=== PATIENT | female | born 1990 | race African-American/Black ===

== ENCOUNTER 2017-10-04 20:02 | Emergency (ER) | payer MEDICAID ==
[~2017-10-04 20:02] MED LIST: ALBUTEROL; BACTRIM
== END 2017-10-04 21:07 | disposition left against medical advice (07) ==
LOC: ER 20:40
DX: Z53.21 Procedure and treatment not carried out due to patient leaving prior to being seen by health care provider (principal)

== ENCOUNTER 2017-11-30 03:28 | Emergency (ER) | payer MEDICAID ==
[~2017-11-30] VITALS: Ht 162.6 cm; Wt 50.0 kg
[2017-11-30 03:43] VITALS: BP 107/81
== END 2017-11-30 05:42 | disposition left against medical advice (07) ==
LOC: ER 03:28
DX: A64 Unspecified sexually transmitted disease (principal); J45.909 Unspecified asthma, uncomplicated; F17.200 Nicotine dependence, unspecified, uncomplicated; Z53.21 Procedure and treatment not carried out due to patient leaving prior to being seen by health care provider

== ENCOUNTER 2018-01-18 22:38 | Emergency (ER) | payer MEDICAID ==
[~2018-01-18] VITALS: Ht 165.1 cm; Wt 54.5 kg
[2018-01-18 23:57] VITALS: BP 108/71
== END 2018-01-19 02:00 | disposition left against medical advice (07) ==
LOC: ER 22:38
DX: S06.9X9A Unspecified intracranial injury with loss of consciousness of unspecified duration, initial encounter (principal); S02.32XA Fracture of orbital floor, left side, initial encounter for closed fracture; H11.32 Conjunctival hemorrhage, left eye; J45.909 Unspecified asthma, uncomplicated; Z88.0 Allergy status to penicillin; Y08.89XA Assault by other specified means, initial encounter; Y93.89 Activity, other specified; Y92.89 Other specified places as the place of occurrence of the external cause; Y99.8 Other external cause status
CPT/HCPCS: 70450; 70486; 72131; 81025; 99284

== ENCOUNTER 2018-06-11 06:28 | Emergency (ER) | payer MEDICAID ==
[~2018-06-11] VITALS: Ht 162.6 cm; Wt 53.0 kg
[2018-06-11 06:40] VITALS: BP 164/81
== END 2018-06-11 07:44 | disposition left against medical advice (07) ==
LOC: ER 07:31
DX: Z53.21 Procedure and treatment not carried out due to patient leaving prior to being seen by health care provider (principal)

== ENCOUNTER 2018-12-06 15:59 | Emergency (ER) | payer MEDICAID ==
[~2018-12-06] VITALS: Ht 162.6 cm; Wt 83.0 kg
[2018-12-06 16:09] VITALS: BP 129/90
[2018-12-06] MEDS ORDERED: LIDOCAINE HCL/PF 1% 10 MG/ML 5ML VIAL IJ ONE (17:45)
[2018-12-06] MEDS ORDERED: HYDROCODONE/ACETAMINOPHEN 5/325MG TABLET PO ONE (17:45)
[2018-12-06] MEDS ORDERED: BACITRACIN ZINC OINT UDPKT TOP ONE (17:45)
[2018-12-06] MEDS ORDERED: IBUPROFEN 600MG TABLET PO ONE (18:45)
== END 2018-12-06 18:54 | disposition home or self-care (01) ==
LOC: ER 16:08
DX: L02.412 Cutaneous abscess of left axilla (principal); F17.200 Nicotine dependence, unspecified, uncomplicated
CPT/HCPCS: 10060; 87070; 87077; 87186; 87205; 99284; J3490

== ENCOUNTER 2019-04-29 12:50 | Emergency (ER) | payer MEDICAID | END 2019-04-29 13:41 | disposition left against medical advice (07) | LOC: ER 12:50 | DX: Z53.21 Procedure and treatment not carried out due to patient leaving prior to being seen by health care provider (principal) ==

== ENCOUNTER 2019-04-29 14:51 | Emergency (ER) | payer MEDICAID ==
[~2019-04-29] VITALS: Ht 165.1 cm; Wt 57.0 kg
[2019-04-29 15:20] VITALS: BP 111/75
== END 2019-04-29 21:32 | disposition left against medical advice (07) ==
LOC: ER 14:51
DX: Z53.21 Procedure and treatment not carried out due to patient leaving prior to being seen by health care provider (principal)

== ENCOUNTER 2020-06-25 08:37 | Emergency (ER) | payer MEDICAID ==
[~2020-06-25] VITALS: Ht 165.1 cm; Wt 68.0 kg
[2020-06-25] MEDS ORDERED: ACETAMINOPHEN 500MG TABLET PO ONE (09:15)
[2020-06-25] MEDS ORDERED: CEPH500T MT (09:38)
[2020-06-25] MEDS ORDERED: SULF1TAB48 MT (09:39)
[2020-06-25 10:00] VITALS: BP 114/82
== END 2020-06-25 10:02 | disposition home or self-care (01) ==
LOC: ER 08:37
DX: N76.0 Acute vaginitis (principal); J45.909 Unspecified asthma, uncomplicated; Z88.0 Allergy status to penicillin
CPT/HCPCS: 10060; 99283

== ENCOUNTER 2020-07-24 10:45 | Emergency (ER) | payer MEDICAID ==
[~2020-07-24] VITALS: Ht 167.6 cm; Wt 70.0 kg
[~2020-07-24 10:45] MED LIST changes: +CEPH500T MT; +SULF1TAB48 MT
[2020-07-24] MEDS ORDERED: SODIUM CHLORIDE 0.9% 1,000 ML IV ONE (11:00)
[2020-07-24] MEDS ORDERED: KETOROLAC 15MG/ML VIAL IV ONE (11:15)
[2020-07-24 11:26] LABS: BASOPHILS % 0.8 % (0.0-2.0); EOSINOPHILS % 0.6 % (0.0-5.0); HEMATOCRIT. 40.9 % (36.0-48.0); HEMOGLOBIN. 13.4 g/dL (12.0-16.0); LYMPHOCYTES % 50.3 % (20.0-50.0); MEAN CORPUSCULAR HEMOGLOBIN 26.8 pg (28.0-32.0); MEAN CORPUSCULAR VOLUME 81.8 fL (81.0-99.0); MEAN PLATELET VOLUME 7.3 fl (7.4-10.4); MONOCYTES % 8.3 % (2.0-8.0); PLATELET 325 x1000/uL (130-400); RED CELL DISTRIBUTION WIDTH 14.3 % (11.6-14.6)
[2020-07-24 11:37] LABS: CHLORIDE 109 mEq/L (98-107)
[2020-07-24 11:41] LABS: CLARITY URINE CLEAR (CLEAR); COLOR URINE YELLOW (YELLOW); KETONES URINE TRACE (NEGATIVE); LEUKOCYTE ESTERASE URINE NEGATIVE (NEGATIVE); NITRITE URINE NEGATIVE (NEGATIVE); OCCULT BLOOD URINE NEGATIVE (NEGATIVE); PH URINE 6.5 (4.5-8.0); PROTEIN URINE NEGATIVE (NEGATIVE); SPECIFIC GRAVITY URINE 1.022 (1.005-1.030)
[2020-07-24 11:45] LABS: HCG SCREEN NEGATIVE
[2020-07-24 11:54] LABS: *AMPHETAMINES SCREEN URINE NEGATIVE (NEGATIVE); *BARBITURATES SCREEN URINE NEGATIVE (NEGATIVE); METHADONE URINE SCREEN NEGATIVE (NEGATIVE); OPIATES URINE SCREEN NEGATIVE (NEGATIVE)
[2020-07-24 11:55] LABS: *BENZODIAZEPINES SCREEN URINE NEGATIVE (NEGATIVE); *COCAINE SCREEN URINE NEGATIVE (NEGATIVE)
[2020-07-24 11:56] LABS: CANNABINOID URINE SCREEN PRESUMTIVE POSITIVE (NEGATIVE); PHENCYCLIDINE URINE SCREEN NEGATIVE (NEGATIVE)
[2020-07-24] MEDS ORDERED: NAPR-681 MT (13:35)
[2020-07-24 15:36] VITALS: BP 125/73
== END 2020-07-24 15:52 | disposition home or self-care (01) ==
LOC: ER 10:45
DX: N83.291 Other ovarian cyst, right side (principal); D25.9 Leiomyoma of uterus, unspecified; J45.909 Unspecified asthma, uncomplicated; Z88.0 Allergy status to penicillin
CPT/HCPCS: 36415; 76830; 76856; 80053; 80305; 81003; 81025; 84703; 85025; 86850; 86900; 86901; 93005; 99285; J1885; J7030